=== PATIENT | female | born 1990 | race Two or more races ===

== ENCOUNTER 2023-05-25 18:53 | Emergency (ER) | payer MEDICAID ==
[~2023-05-25] VITALS: Ht 162.6 cm; Wt 52.6 kg
[2023-05-25 19:43] VITALS: BP 110/68; TEMP 98.2; O2SAT 100
[2023-05-25] MEDS ORDERED: VALA10002 PO (19:44)
[2023-05-25] MEDS ORDERED: IBUP-1953 PO (19:44)
== END 2023-05-25 19:46 | disposition home or self-care (01) ==
LOC: ER 19:04
DX: B00.59 Other herpesviral disease of eye (principal)